=== PATIENT | male | born 1965 | race Caucasian/White ===

== ENCOUNTER 2025-05-17 00:37 | Emergency (ER) | payer BC ==
[~2025-05-17] VITALS: Ht 175.3 cm; Wt 83.9 kg
[2025-05-17 00:37] VITALS: BP 185/95
[2025-05-17] MEDS ORDERED: KETOROLAC TROMETHAMINE 30 MG INJ ONE (00:51)
[2025-05-17] MEDS ORDERED: HYDROCODONE/APAP 10-325 MG TABLET ONE (00:51)
[2025-05-17] MEDS: KETOROLAC TROMETHAMINE 30 MG INJ IM ONE (01:00)
[2025-05-17] MEDS: HYDROCODONE/APAP 10-325 MG TABLET PO ONE (01:01)
[2025-05-17] MEDS ORDERED: CYCL5TAB PO (02:14)
[2025-05-17] MEDS ORDERED: GABA300C PO (02:14)
[2025-05-17] MEDS ORDERED: PRED20TA PO (02:14)
[2025-05-17] MEDS: GABAPENTIN 300 MG CAPSULE PO ONE (02:15)
[2025-05-17 02:26] VITALS: BP 155/85; TEMP 98; O2SAT 98
== END 2025-05-17 02:45 | disposition home or self-care (01) ==
LOC: ER 00:42
DX: M54.42 Lumbago with sciatica, left side (principal); R03.0 Elevated blood-pressure reading, without diagnosis of hypertension; R20.0 Anesthesia of skin; Z79.52 Long term (current) use of systemic steroids
CPT/HCPCS: 99285; 72131; 96372; J1885; A4606; A4663